=== PATIENT | male | born 1980 | race Caucasian/White ===

== ENCOUNTER → 2018-10-14 | Outpatient (CLI) | payer OTHER ==
[~2018-10-14] MED LIST: CONRAY-43 43% 50ML VIAL (Q9960) As Ordered ONE; PROHANCE 279.3MG/ML 5ML VIAL (A9576) As Ordered ONE
--- NOTE | 2018-10-14 10:07 | REP ---
MR arthrography right shoulder: with pre and post intra-articular gadolinium enhanced saline injected imaging: History: Chronic right shoulder pain. Progressive. Pain extends down the arm. Comparison radiographs April 15, 2018. Technique: The injection procedure is performed and dictated separately. Pre and post intra-articular gadolinium enhanced saline injected imaging is acquired. Imaging planes include axial, oblique coronal, oblique sagittal and ABER projection images. T1 T2-weighted scans are included with and without fat saturation. MRI findings: Preinjection images demonstrate normal cortical and medullary bone signal intensity and normal glenohumeral and acromioclavicular joint alignment. 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 No compression or indentation of the supraspinatus musculotendinous junction is appreciated. There is however advanced tendinosis in the distal supraspinatus with thickening and increased signal intensity on oblique coronal T1-weighted scans. There is focal T2 hyperintense lesion in the supraspinatus tendon at approximately 11 to 12 o'clock on the humeral head on oblique coronal T1-weighted scans consistent with a large partial-thickness supraspinatus cuff tear. There is a small subacromial subdeltoid bursal effusion. The infraspinatus, subscapularis and biceps tendons appear intact on preinjection imaging. Post injection imaging shows good filling and enhancement of the glenohumeral articulation. No loose body. There is some injected contrast enhancement within the synovial surface of the distal supraspinatus at the level of the tear described above. There is no evidence of complete tear on post injection imaging. There is some enhancement at the distal attachment of the supraspinatus tendon as well consistent with partial cuff lesion at this location although. Impression: Two foci of partial thickness supraspinatus cuff tears as described above. No full-thickness lesion seen. Small subacromial subdeltoid bursal effusion. Mild AC joint hypertrophy. There is fraying of the superior labral cartilage. There is some fraying and irregularity of the superior labral cartilage. No anterior or posterior labral tear is appreciated. Electronically Signed by London Cotter MD 10/14/2018 10:15 A
--- NOTE | 2018-10-15 08:12 | REP ---
Procedure: Right shoulder arthrogram The procedure was performed under the direct supervision of Dr. Cotter. History: Right shoulder pain The benefits and risks including but not limited to pain, infection, bleeding and anaphylaxis were explained to the patient and informed consent was obtained. Technique: The right glenohumeral joint space was localized using fluoroscopic guidance. The skin was prepped and draped in a sterile fashion. 1% lidocaine was used as a local anesthetic. Using fluoroscopic guidance a 22 gauge spinal needle was inserted and advanced into the joint. 0.5 ml of Conray 43 was injected to verify placement. 11 ml of a solution containing 20 ml of sterile saline and 0.15 ml of ProHance was injected into the joint. The needle was removed and the patient was taken to MRI for postprocedural imaging. The the patient tolerated the procedure well and there were no immediate complications. Less than 6 seconds of fluoro time was utilized for this procedure. Reviewed by SERGIO Gonzalez 10/14/2018 04:08 P Electronically Signed by London Cotter MD 10/15/2018 08:03 A
== END ==
LOC: M RADPRO 07:37
PROVIDERS: ATTEND Physician Assistant
DX: M75.111 Incomplete rotator cuff tear or rupture of right shoulder, not specified as traumatic (principal); M25.511 Pain in right shoulder
CPT/HCPCS: 23350; 73223; 77002; A9576; Q9960